=== PATIENT | male | born 1955 | race Caucasian/White ===

== ENCOUNTER 2022-08-20 08:35 | Outpatient (CLI) | payer MEDICARE, BC, SELFPAY | END 2022-08-20 08:36 | disposition home or self-care (01) | PROVIDERS: PCP Family Medicine; Visit Provider Family Medicine | DX: Z00.00 Encounter for general adult medical examination without abnormal findings (principal); E78.5 Hyperlipidemia, unspecified; Z13.1 Encounter for screening for diabetes mellitus; Z12.5 Encounter for screening for malignant neoplasm of prostate; Z13.0 Encounter for screening for diseases of the blood and blood-forming organs and certain disorders involving the immune mechanism | CPT/HCPCS: 80048; 80061; 84153 ==

== ENCOUNTER 2023-09-30 08:27 | Outpatient (CLI) | payer MEDICARE, BC, SELFPAY | END 2023-09-30 08:28 | disposition home or self-care (01) | PROVIDERS: PCP Family Medicine; Visit Provider Family Medicine | DX: C32.0 Malignant neoplasm of glottis (principal); Z13.1 Encounter for screening for diabetes mellitus; E78.2 Mixed hyperlipidemia | CPT/HCPCS: 80048; 80061 ==

== ENCOUNTER 2024-11-01 08:37 | Outpatient (CLI) | payer MEDICARE, BC, SELFPAY | END 2024-11-01 08:38 | disposition home or self-care (01) | PROVIDERS: PCP Family Medicine; Visit Provider Family Medicine | DX: E78.2 Mixed hyperlipidemia (principal); Z12.5 Encounter for screening for malignant neoplasm of prostate | CPT/HCPCS: 80053; 80061; G0103 ==

== ENCOUNTER 2024-11-02 06:00 | Outpatient (CLI) | payer MEDICARE, BC, SELFPAY | END 2024-11-02 06:01 | disposition home or self-care (01) | LOC: NFLDREF 11-08 16:50 | PROVIDERS: PCP Family Medicine; Referring Provider Family Medicine; Visit Provider Family Medicine | DX: R19.7 Diarrhea, unspecified (principal) | CPT/HCPCS: 82653; 83993 ==

== ENCOUNTER 2025-01-04 10:01 | Outpatient (CLI) | payer MEDICARE, BC, SELFPAY | END 2025-01-04 10:02 | disposition home or self-care (01) | LOC: NFLDREF 01-06 02:13 | PROVIDERS: PCP Family Medicine; Referring Provider Family Medicine; Visit Provider Family Medicine | DX: R94.6 Abnormal results of thyroid function studies (principal) | CPT/HCPCS: 84439; 84443 ==